=== PATIENT | female | born 1970 | race Caucasian/White ===

== ENCOUNTER 2018-05-24 07:18 | Outpatient (CLI) | payer OTHER ==
--- NOTE | 2018-05-24 08:47 | ULT ---
ULTRASOUND ABDOMEN COMPLETE HISTORY: Abdominal pain. TECHNIQUE: Darling-scale ultrasound evaluation of the liver, gallbladder, spleen, pancreas, common bile duct, kidne ys, abdominal aorta, and inferior vena cava (IVC). FINDINGS: No focal hepatic lesion. No acute gallbladder pathology. The imaged common duct is normal at 4 mm. No ascites. There is no overt hydronephrosis involving the kidneys. The spleen is grossly unremark able. Pancreas is partially obscured from view limiting assessment in this regard. IMPRESSION: No acute intraabdominal pathology is identified by sonographic evaluation. POS: [facility]
== END 2018-05-24 07:19 | disposition home or self-care (01) ==
LOC: ULT 07:18
PROVIDERS: ATTEND Nurse Practitioner Family
DX: K80.50 Calculus of bile duct without cholangitis or cholecystitis without obstruction (principal); R10.9 Unspecified abdominal pain
CPT/HCPCS: 76700

== ENCOUNTER 2018-06-07 07:40 | Outpatient (CLI) | payer OTHER ==
--- NOTE | 2018-06-07 13:22 | NM ---
HEPATOBILIARY SCAN: HISTORY: Abdominal pain. Right upper quadrant pain. Calculus in bile duct without cholangitis or cholecystit is without obstruction. RADIOPHARMACEUTICAL: Technetium 99m mebrofenin 5.4 millicuries injected intravenously. FINDINGS: There is good tracer extraction by the liver with prompt excretion into the biliary tract and small b owel loops and normal filling of the gallbladder. The calculated gallbladder ejection fraction, following an oral fatty meal, measured 96%. IMPRESSION: Normal examination. POS: OFF
== END 2018-06-07 07:41 | disposition home or self-care (01) ==
LOC: NM 07:40
PROVIDERS: ATTEND Surgery
DX: K80.50 Calculus of bile duct without cholangitis or cholecystitis without obstruction (principal)
CPT/HCPCS: 78227; A9537

== ENCOUNTER 2018-07-03 14:36 | Outpatient (CLI) | payer OTHER ==
--- NOTE | 2018-07-03 15:45 | RAD ---
RADIOGRAPH CERVICAL SPINE SERIES FOUR VIEWS: 07/03/18 INDICATION: Neck pain, right shoulder pain. FINDINGS: Moderate multilevel degenerative changes cervical spine is present. There is focal kyphosis which is centered at the C5-6 level with slight retrolisthesis of C5 on 6. Mild multilevel facet sclerosis is present. No compression deformity. Imaged aspects of the dens are intact. Lateral mass or C1 are appr opriately aligned. IMPRESSION: Moderate multilevel degenerative change of the cervical spine. POS: [facility]ANNA[facility]
== END 2018-07-03 14:37 | disposition home or self-care (01) ==
LOC: RAD-FRANK 14:36
PROVIDERS: ATTEND Nurse Practitioner Family
DX: M54.2 Cervicalgia (principal); M47.812 Spondylosis without myelopathy or radiculopathy, cervical region
CPT/HCPCS: 72040

== ENCOUNTER 2018-08-01 10:43 | Outpatient (CLI) | payer OTHER ==
--- NOTE | 2018-08-01 11:16 | RAD ---
CERVICAL SPINE SERIES 5 VIEWS INCLUDING FLEXION AND EXTENSION: Date: 08/01/18 HISTORY: Neck pain extending down right arm. FINDINGS: The vertebral bodies are normal in height. There is marked degenerative disc narrowing at C5-6 and a retrolisthesis at this level. This does not appear to change between flexion and extension views. The re is also disc narrowing at C4-5 and C6-7. IMPRESSION: Arthritic changes of the spine. POS: MADDIE
--- NOTE | 2018-08-01 11:47 | MRI ---
Cervical spine MRI without contrast: 08/01/2018 COMPARISON: None HISTORY: 48-year-old female with neck pain radiating down the right arm, right upper extremity/cervic al radiculopathy TECHNIQUE: Multiplanar multisequence MR imaging of cervical spine without contrast FINDINGS: Sagittal STIR imaging demonstrates no focal area of osseous marrow edema. There is straightening of the normal cervical lordosis. No prevertebral soft tissue abnormality noted . C2-3: No significant central canal or neural foraminal stenosis C3-4: There is disc space narrowing and disc desiccation with minimal disc bulge causing no central c anal stenosis. No significant neural foraminal stenosis. C4-5: Disc space narrowing and disc desiccation with mild disc bulge partially effacing the ventral t hecal sac. No significant central canal or neural foraminal stenosis. C5-6: There is disc space narrowing and disc desiccation with a disc osteophyte complex effacing the ventral thecal sac and abutting the ventral aspect of the cord with mild deformity of the cord on the left. There is associated mild/moderate central canal stenosis to the left of midline. There are facet hypertrophic changes bilaterally as well as bilateral uncovertebral osteophyte formation, left greater than right. Mild right and [id number] left neural foraminal stenosis. C6-7: Disc space narrowing and disc desiccation with disc bulge effaces ventral thecal sac and causes moderate central canal stenosis. Bilateral facet and uncovertebral osteophyte formation noted with moderate bilateral neural foraminal stenosis, left greater than right. C7-T1: No significant central canal or neural foraminal stenosis. No focal area of abnormal signal intensity within the cervical cord. IMPRESSION: Multilevel cervical spine degenerative change as described above.
== END 2018-08-01 10:44 | disposition home or self-care (01) ==
LOC: TBSIIMAG 10:43
PROVIDERS: ATTEND Neurological Surgery
DX: M50.10 Cervical disc disorder with radiculopathy, unspecified cervical region (principal); M47.22 Other spondylosis with radiculopathy, cervical region
CPT/HCPCS: 72050; 72141

== ENCOUNTER 2018-08-28 06:31 | Outpatient (CLI) | payer OTHER ==
[2018-08-28 14:04] LABS: Hemoglobin 13.7 g/dL (12.0-16.0); Mean Corpuscular HGB CONC 33.2 g/dL (32.0-36.0); Mean Corpuscular Hemoglobin 32.7 pg (27.0-31.0); Mean Corpuscular Volume 98.4 fL (78.0-98.0); Mean Platelet Volume 9.2 fL (7.4-10.4); Platelet Count 165 thou/uL (130-400); RBC Distribution Width 11.6 % (11.5-14.5); Red Blood Cell (RBC) Count 4.19 mill/uL (4.20-5.40); White Blood Cell (WBC) Count 8.4 thou/uL (4.8-10.8)
[2018-08-28 14:32] LABS: Anion Gap 11 mmol/L (10-20); BUN (Urea Nitrogen) 17 mg/dL (7.0-18.7); Calc. Creatinine Clearance 0 mL/min (70-130); Calcium 9.8 mg/dL (7.8-10.44); Carbon Dioxide 28 mmol/L (22-29); Chloride 102 mmol/L (98-107); Estimated GFR-MDRD Greater than 90; Glucose 90 mg/dL (70-105); Potassium 3.8 mmol/L (3.5-5.1); Sodium 137 mmol/L (136-145)
--- NOTE | 2018-09-03 18:23 | EKG ---
Test Reason : Blood Pressure : / mmHG Vent. Rate : 086 BPM Atrial Rate : 086 BPM P-R Int : 118 ms QRS Dur : 076 ms QT Int : 370 ms P-R-T Axes : 213 064 -22 degrees QTc Int : 442 ms Unusual P axis, possible ectopic atrial rhythm Nonspecific ST and T wave abnormality Abnormal ECG No previous ECGs available Confirmed by ABEL WILSON (2) on 09/03/2018 6:22:54 PM Referred By: [email or web address] Confirmed By:ABEL WILSON
== END 2018-08-28 06:32 | disposition home or self-care (01) ==
LOC: LABBT 06:31
PROVIDERS: ATTEND Neurological Surgery
DX: Z01.818 Encounter for other preprocedural examination (principal); M54.12 Radiculopathy, cervical region
CPT/HCPCS: 80048; 85027; 93005; 93010

== ENCOUNTER 2018-09-02 06:15 | Day surgery (SDC) | payer OTHER ==
[2018-08-28 13:26] VITALS: BMI 26.6
[2018-09-02] MEDS ORDERED: Thrombin 5000 UNITS/5 ML VIAL ONE (07:59)
[2018-09-02] MEDS ORDERED: Sodium Chloride 0.9% 10 ML ONE (08:15)
[2018-09-02] MEDS ORDERED: Fentanyl 100 MCG/2 ML VIAL ONE ×3 (08:25→11:06)
[2018-09-02] MEDS ORDERED: Promethazine HCl 25 MG/ML VIAL IM PRN ×2 (10:17→10:24)
[2018-09-02] MEDS ORDERED: Promethazine HCl 25 MG/ML VIAL SLOW IVP PRN (10:17)
[2018-09-02] MEDS ORDERED: Meperidine HCl/PF 25 MG/ML VIAL SLOW IVP PRN (10:17)
[2018-09-02] MEDS ORDERED: Ondansetron HCl/PF 4 MG/2 ML Vial IVP PRN ×2 (10:17→11:00)
[2018-09-02] MEDS ORDERED: Promethazine 25 MG TAB PO PRN (10:24)
[2018-09-02] MEDS ORDERED: Morphine 4 MG/ML VIAL SLOW IVP PRN ×2 (10:24→11:00)
[2018-09-02] MEDS ORDERED: diphenhydrAMINE 25 MG CAP PO PRN (10:24)
[2018-09-02] MEDS ORDERED: Acetaminophen/Codeine 30-300mg Tablet PO PRN (10:24)
[2018-09-02] MEDS ORDERED: traMADol HCl 50 MG TAB PO PRN ×2 (10:24)
[2018-09-02] MEDS ORDERED: Promethazine HCl 12.5 MG SUPP PR PRN (10:24)
[2018-09-02] MEDS ORDERED: Ondansetron PF 4 MG/2 ML Vial IVP PRN (10:24)
[2018-09-02] MEDS ORDERED: diphenhydrAMINE 50 MG/ML VIAL IVP PRN (10:24)
[2018-09-02] MEDS ORDERED: Ibuprofen 200 MG TAB PO PRN (10:38)
[2018-09-02] MEDS ORDERED: Morphine 4 MG/ML VIAL ONE (10:52)
[2018-09-02] MEDS ORDERED: Morphine Sulfate 2 MG/ML SYRINGE SLOW IVP PRN (11:00)
[2018-09-02] MEDS ORDERED: HYDROmorphone 2 MG/ML VIAL SLOW IVP PRN (11:00)
[2018-09-02] MEDS ORDERED: Promethazine HCl 25 MG/ML VIAL IM/IV PRN (11:00)
[2018-09-02] MEDS ORDERED: Morphine 2 MG/ML SYRINGE ONE ×2 (11:22→11:37)
[2018-09-02] MEDS ORDERED: Non-Formulary Medication 1 EACH PO PRN (11:54)
[2018-09-02] MEDS: tiZANidine HCl 4 MG TAB PO PRN (12:45)
[2018-09-02] MEDS: Sodium Chloride 0.9% 1,000 ML IV SCH (12:47)
[2018-09-02] MEDS: CEFAZOLIN 2 GM in Premix Bag 1 BAG IVPB SCH ×2 (14:33→21:10)
[2018-09-02] MEDS: Acetaminophen/Codeine 30-300mg Tablet PO PRN ×2 (14:43→21:06)
--- NOTE | 2018-09-02 15:08 | OP ---
DATE OF PROCEDURE: 09/02/2018 [facility] OPERATOR: Twan Hines PA-C PROCEDURE PERFORMED: Anterior cervical diskectomy C5-C6 and C6-C7, interbody arthrodesis, intervertebral biomechanical device, local morselized autograft, demineralized bone matrix, anterior titanium instrumentation C5-C6 and C6-C7. DESCRIPTION OF PROCEDURE: The patient was brought to the operating room and intubated. She was positioned supine with the head in modest extension on gel-filled donut. Incision was made in the right precervical area and dissected medial to the sternocleidomastoid muscle, identified the anterior cervical spinal, and the level was confirmed by x-ray. The C5-C6 level was partially auto-fused. We placed distraction across the disk spaces, and completely decompressed the intervertebral disks with particular difficulty at C5-C6, but did ultimately loosen this region. Operative microscope and microdissection techniques were then used and then complete decompression was achieved down the level of the dura at both affected levels. The bony endplates were then decorticated for the purpose of arthrodesis and appropriate-sized intervertebral biomechanical PEEK device was brought into the field and filled with demineralized bone matrix and local morselized autograft, and tapped in place securely at C5-C6 and C6-C7. Next, an anterior plate was brought into the field and secured to C5, C6, and C7 using two 14-mm screws at each level. The wound was then extensively irrigated and MAC hemostasis was secured, and the wound was closed in anatomic layers over drain. Job ID: [id number]
[2018-09-02] MEDS ORDERED: Lidocaine 1% PF 5 ML VIAL ONE (16:28)
[2018-09-02] MEDS ORDERED: Phenylephrine HCL 10 MG/ML VIAL ONE (16:28)
[2018-09-02] MEDS ORDERED: Dexamethasone 20 MG/5 ML VIAL ONE (16:28)
[2018-09-02] MEDS ORDERED: PROPOFOL 200 MG/20 ML VIAL ONE (16:28)
[2018-09-02] MEDS ORDERED: Ondansetron PF 4 MG/2 ML Vial ONE (16:28)
[2018-09-02] MEDS ORDERED: Glycopyrrolate 0.2 MG/ML 5 ML SYRINGE ONE (16:28)
[2018-09-02] MEDS ORDERED: ePHEDrine 50 MG/ML VIAL ONE (16:28)
[2018-09-02] MEDS ORDERED: Rocuronium Bromide 10 MG/ML (10ML VIAL) ONE (16:28)
[2018-09-02] MEDS ORDERED: Loratadine 10 MG TAB PO SCH (21:00)
[2018-09-02] MEDS ORDERED: Cyclobenzaprine 10 MG TAB PO SCH (21:00)
[2018-09-02] MEDS: Naproxen 500 MG TAB PO SCH (21:06)
[2018-09-03] MEDS: Sodium Chloride 0.9% 1,000 ML IV SCH (00:28)
[2018-09-03] MEDS: CEFAZOLIN 2 GM in Premix Bag 1 BAG IVPB SCH (06:06)
[2018-09-03] MEDS: tiZANidine HCl 4 MG TAB PO PRN (06:06)
[2018-09-03] MEDS: Acetaminophen/Codeine 30-300mg Tablet PO PRN (06:07)
[2018-09-03 07:51] VITALS: BP 99/62; TEMP 98.3
[2018-09-03] MEDS: Naproxen 500 MG TAB PO SCH (08:28)
[2018-09-03] MEDS ORDERED: Acetaminophen/Codeine 30-300mg Tablet PO SCH (09:00)
--- NOTE | 2018-09-03 13:13 | DIS ---
DATE OF ADMISSION: 09/02/2018 DATE OF DISCHARGE: 09/03/2018 DISCHARGE SUMMARY: The patient is a 48-year-old female who presented to our office recently for increasing neck and arm pain. The patient underwent C5-C7 anterior diskectomy and fusion on 09/02/2018. Following the surgery, she was transitioned to the Med/Surg floor. Her pain was well controlled with p.o. medications, she was tolerating a regular diet, and she has been voiding appropriate. She did have a EFRAIN drain placed intraoperatively, which had 30 mL out overnight. She was up and ambulatory back and forth to the bathroom without any difficulty. This morning on exam, she is awake, alert, in no acute distress. She has free active range of motion of all extremities. No focal motor weakness. No reflex asymmetry. She has mild hoarseness to her voice. Her dressing is dry and her incision is soft. We will plan to have the EFRAIN drain removed this morning. Dismiss the patient home. I have discussed home care precautions. We will follow up with the patient in 2 weeks. Job ID: [id number]
== END 2018-09-03 10:35 | disposition home or self-care (01) ==
LOC: SDC 06:15 → SURG B 12:14 → SDC 09-03 10:35
PROVIDERS: ATTEND Neurological Surgery
PROC: 0RG20A0 Fusion of 2 or more Cervical Vertebral Joints with Interbody Fusion Device, Anterior Approach, Anterior Column, Open Approach (ICD-10-PCS; principal; 2018-09-03)
PROC: 0RT30ZZ Resection of Cervical Vertebral Disc, Open Approach (ICD-10-PCS; principal; 2018-09-03)
DX: M50.10 Cervical disc disorder with radiculopathy, unspecified cervical region (principal)
CPT/HCPCS: 76000; C1713; C1776; J0690; J1100; J2001; J2270; J2370; J2405; J2704; J3010; J3370; J3490

== ENCOUNTER 2018-09-19 14:42 | Outpatient (CLI) | payer OTHER ==
--- NOTE | 2018-09-19 15:42 | RAD ---
CERVICAL SPINE 3 VIEWS: HISTORY: Followup surgery, surgical radiculopathy. COMPARISON: 07/03/2018. FINDINGS: Anterior cervical fusion changes are noted at C5, C6, and C7 with intradiskal prosthesis. No signifi cant malalignment. Generalized spondylosis including C3-C4 and C4-C5 as well as facet arthrosis. IMPRESSION: Cervical spondylosis. Anterior cervical fusion changes at C5 through C7. POS: [facility]
== END 2018-09-19 14:43 | disposition home or self-care (01) ==
LOC: TBSIIMAG 14:42
PROVIDERS: ATTEND Neurological Surgery
DX: M47.22 Other spondylosis with radiculopathy, cervical region (principal); Z98.1 Arthrodesis status
CPT/HCPCS: 72040

== ENCOUNTER 2019-01-13 09:51 | Outpatient (CLI) | payer OTHER ==
--- NOTE | 2019-01-13 14:06 | BD ---
BONE DENSITOMETRY USING DEXA: Date: 01/13/19 HISTORY: Screening for osteoporosis. FINDINGS: Lumbar Spine: BMD (g/cm2) L1 1.046 T-Score: 0.5 Z-Score: 1.1 L2 1.032 T-Score: 0.0 Z-Score: 0.7 L3 1.050 T-Score: 0.3 Z-Score: 0.4 L4 1.072 T-Score: 0.1 Z-Score: 0.8 L1-L4 1.051 T-Score: 0.0 Z-Score: 0.7 Femoral Neck: 0.857 T-Score: 0.1 Z-Score: 0.8 Total Femur: 1.096 T-Score: 1.3 Z-Score: 1.7 IMPRESSION: Normal bone mineral density. POS: [facility]
== END 2019-01-13 09:52 | disposition home or self-care (01) ==
LOC: BICMAMMO 09:51
PROVIDERS: ATTEND Nurse Practitioner Family
DX: Z13.820 Encounter for screening for osteoporosis (principal); M19.90 Unspecified osteoarthritis, unspecified site
CPT/HCPCS: 77080

== ENCOUNTER 2019-10-27 10:46 | Outpatient (CLI) | payer OTHER ==
--- NOTE | 2019-10-27 13:52 | MRI ---
CERVICAL SPINE MRI WITHOUT CONTRAST: DATE: 10/27/2019. HISTORY: Neck and bilateral shoulder pain, arm pain, prior neck surgery. TECHNIQUE: Multiplanar, multisequence MR imaging of the cervical spine provided without contrast. FINDINGS: The sagittal STIR imaging demonstrates no focal area of osseous marrow edema. There is no anterolist hesis or retrolisthesis noted within the cervical spine. Anterior diskectomy and fusion hardware is present at C5-6/C6-7. Associated artifact limits detailed assessment at these levels. There is moderate degenerative change at the atlantoaxial interspace. C2-3: There is disk space narrowing and disk desiccation with mild bilateral facet and uncovertebral osteophyte formation. No significant central canal or neural foraminal stenosis. C3-4: There is minimal anterolisthesis of C3 on C4 measuring in the 2-3 mm range. There is disk spa ce narrowing with disk desiccation and anterior osteophyte. There is mild uncovertebral and facet os teophyte formation on the left. There is no significant central canal or neural foraminal stenosis. C4-5: There is disk space narrowing with disk desiccation and mild disk bulge. There is partial eff acement of the ventral thecal sac with mild central canal stenosis. There is mild left facet and unc overtebral osteophyte formation with no significant neural foraminal stenosis appreciated. C5-6: Small central osteophyte suspected with partial effacement of the ventral thecal sac and mild central canal stenosis. Left facet and uncovertebral osteophyte formation with probable left neural foraminal stenosis, not well evaluated on this examination secondary to hardware artifact. C6-7: Mild bilateral facet and uncovertebral osteophyte formation. Mild central canal and bilateral neural foraminal stenosis. Evaluation is limited secondary to hardware artifact. C7-T1: No significant central canal or neural foraminal stenosis. No focal area of abnormal signal intensity within the cervical cord. IMPRESSION: Postoperative and degenerative change within the cervical spine as detailed above. POS: [facility]
== END 2019-10-27 10:47 | disposition home or self-care (01) ==
LOC: TBSIIMAG 10:46
PROVIDERS: ATTEND Physician Assistant
DX: M47.22 Other spondylosis with radiculopathy, cervical region (principal); Z98.890 Other specified postprocedural states
CPT/HCPCS: 72141

== ENCOUNTER 2023-09-25 06:12 | Day surgery (SDC) | payer OTHER ==
[2023-09-24 12:54] VITALS: BMI 26.6
[2023-09-25 07:30] LABS: #Basophils 0.03 10x3/uL (0.0-0.2); %Basophils 0.5 % (0.0-1.0); %Eosinophils 2.7 % (0.0-10.0); %Lymphocytes 44.2 % (21.0-51.0); %Monocytes 8.5 % (0.0-10.0); %Neutrophils 43.9 % (42.0-75.0); Hematocrit 38.6 % (36.0-47.0); Hemoglobin 12.8 g/dL (12.0-16.0); Mean Corpuscular HGB CONC 33.2 g/dL (32.0-36.0); Mean Corpuscular Hemoglobin 31.2 pg (27.0-31.0); Mean Corpuscular Volume 94.1 fL (78.0-98.0); Mean Platelet Volume 13.4 fL (7.4-10.4); Platelet Count 151 10x3/uL (130-400); RBC Distribution Width 14.1 % (11.5-14.5)
[2023-09-25] MEDS ORDERED: PROPOFOL 200 MG/20 ML VIAL ONE (07:33)
[2023-09-25] MEDS ORDERED: Lidocaine 1% PF 5 ML VIAL ONE (07:33)
[2023-09-25 07:37] LABS: INR-International Normal Ratio 1.3; Prothrombin Time 16.5 sec (12.0-14.7)
[2023-09-25 07:38] LABS: PTT 33.9 sec (22.9-36.1)
[2023-09-25 07:48] LABS: Anion Gap 16 mmol/L (10-20); BUN (Urea Nitrogen) 26 mg/dL (9.8-20.1); Calc. Creatinine Clearance 102 mL/min (70-130); Calcium 9.2 mg/dL (7.8-10.44); Carbon Dioxide 23 mmol/L (22-29); Chloride 109 mmol/L (98-107); Estimated GFR 99; Glucose 100 mg/dL (70-105); Potassium 4.6 mmol/L (3.5-5.1); Sodium 143 mmol/L (136-145)
== END 2023-09-25 09:14 | disposition home or self-care (01) ==
LOC: SDC 06:12
PROVIDERS: ATTEND Internal Medicine Cardiovascular Disease
PROC: 5A2204Z Restoration of Cardiac Rhythm, Single (ICD-10-PCS; principal; 2023-09-25)
DX: I48.19 Other persistent atrial fibrillation (principal); R00.1 Bradycardia, unspecified; E78.5 Hyperlipidemia, unspecified; Z79.01 Long term (current) use of anticoagulants; Z79.82 Long term (current) use of aspirin; Z79.899 Other long term (current) drug therapy; Z86.73 Personal history of transient ischemic attack (TIA), and cerebral infarction without residual deficits; Z90.710 Acquired absence of both cervix and uterus
CPT/HCPCS: 80048; 85025; 85610; 85730; 92960; J2704